=== PATIENT | male | born 1950 | race Caucasian/White ===

== ENCOUNTER 2022-08-02 03:26 | Emergency (ER) | payer OTHER ==
[~2022-08-02] VITALS: Ht 167.6 cm; Wt 80.7 kg
[2022-08-02 03:33] VITALS: BP 150/88
--- NOTE | 2022-08-02 03:36 | NUR ---
Patient taken to chair A.
--- NOTE | 2022-08-02 03:37 | NUR ---
Dr. Shae examining patient.
[2022-08-02] MEDS ORDERED: LIDOCAINE 5% 1 EA PATCH TP STA (03:41)
[2022-08-02] MEDS ORDERED: ACETAMINOPHEN EXTRA STRENGTH 500 MG TAB PO ONE (03:45)
[2022-08-02] MEDS ORDERED: DIAZEPAM PFS 10 MG/2 ML SYR IM ONE (03:45)
--- NOTE | 2022-08-02 03:57 | NUR ---
Patient taken to CT scan via WC.
[2022-08-02] MEDS ORDERED: ACET-10509 PO (05:20)
[2022-08-02] MEDS ORDERED: LID5T TP (05:20)
--- NOTE | 2022-08-02 05:26 | NUR ---
PT MOVED TO ER BED 2
--- NOTE | 2022-08-02 07:05 | NUR ---
PT RECEIVED, CARE ASSUMED. INTRODUCED MYSELF TO PT. INFORMED HIM OF D/C ORDERS. PT DOSEN'T HAVE SHOES. I WAS TOLD BY PREVIOUS RN THAT SISTER, (TRANSPORT) CAN'T RESOURCE [employer]NAGER PT. WILL CALL SISTER. PHONE [phone]
--- NOTE | 2022-08-02 07:17 | NUR ---
Pt report given to LETITIA SNYDER. Transfer of care at this time.
[2022-08-02 08:44] VITALS: BP 130/82
--- NOTE | 2022-08-02 08:46 | NUR ---
Patient discharged with v/s stable. Written and verbal after care instructions given and explained. Patient verbalized understanding. Ambulatory with to car. All questions addressed prior to discharge. Advised to follow up with PMD.
[2022-08-03] MEDS ORDERED: NOVR SUBQ (04:07)
[2022-08-03] MEDS ORDERED: LISI2.5T12 PO (04:07)
[2022-08-05] MEDS ORDERED: METO25TA PO (12:54)
[2022-08-05] MEDS ORDERED: ATOR20TA40 PO (12:54)
[2022-08-05] MEDS ORDERED: ASPI81CT95 PO (12:54)
== END 2022-08-02 08:44 | disposition home or self-care (01) ==
LOC: MED 03:26 → EDSEX 03:26 → MED 08:44
DX: S16.1XXA Strain of muscle, fascia and tendon at neck level, initial encounter (principal); I10 Essential (primary) hypertension; I25.10 Atherosclerotic heart disease of native coronary artery without angina pectoris; Z79.899 Other long term (current) drug therapy; X58.XXXA Exposure to other specified factors, initial encounter; Y93.89 Activity, other specified; Y92.89 Other specified places as the place of occurrence of the external cause; Y99.8 Other external cause status
CPT/HCPCS: 72125; 96372; 99284; J3360